=== PATIENT | female | born 1960 | race Caucasian/White ===

== ENCOUNTER 2019-06-02 07:59 | Outpatient (CLI) | payer BC, SELFPAY | END 2019-06-02 08:00 | disposition home or self-care (01) | LOC: ANHAUDIO 08:01 | PROVIDERS: PCP Otolaryngology; Referring Provider Otolaryngology; Visit Provider Otolaryngology | DX: R26.89 Other abnormalities of gait and mobility (principal); H91.93 Unspecified hearing loss, bilateral | CPT/HCPCS: 92537; 92540; 92546; 92557; 92567 ==

== ENCOUNTER 2024-01-07 09:14 | Outpatient (CLI) | payer MEDICARE, SELFPAY ==
[2024-01-07 18:56] LABS: Free T4 Free Thyroxine 1.07 ng/mL (0.78-2.19)
== END 2024-01-07 09:15 | disposition home or self-care (01) ==
LOC: ANHGOSHLAB 09:15
PROVIDERS: PCP Internal Medicine; Visit Provider Clinical Nurse Specialist
DX: F41.9 Anxiety disorder, unspecified (principal)
CPT/HCPCS: 36415; 84439; 84443

== ENCOUNTER 2024-12-19 11:02 | Outpatient (CLI) | payer MEDICARE, SELFPAY ==
--- NOTE | ~2024-12-19 | XR_ITS ---
EXAMINATION: XR heel LT min 2V, 12/19/2024 11:18 CDT HISTORY: Pain in unspecified foot x 1 month, no inj, no surg COMPARISON: No comparisons available. Findings: No acute fracture or malalignment. No significant degenerative changes. Soft tissues unremarkable. Impression: No acute fracture or malalignment. Reviewed, dictated and finalized at location P. Impression: No acute fracture or malalignment.
== END 2024-12-19 11:03 | disposition home or self-care (01) ==
PROVIDERS: PCP Nurse Practitioner; Visit Provider Nurse Practitioner
DX: M79.672 Pain in left foot (principal)
CPT/HCPCS: 73650